=== PATIENT | female | born 1955 | race Caucasian/White ===

== ENCOUNTER 2024-06-30 11:15 | Day surgery (SDC) | payer OTHER ==
[2024-06-29 08:41] VITALS: BMI 30.9
[2024-06-30 12:02] VITALS: TEMP 97.2
[2024-06-30] MEDS: LACTATED RINGERS 1,000 ML IV SCH (12:09)
[2024-06-30] MEDS: IV FLUID CONTINUATION 1,000 ML IV ONE (12:09)
[2024-06-30] MEDS ORDERED: PROPOFOL 10 MG/ML 20 ML VIAL IV ONE (12:11)
[2024-06-30] MEDS ORDERED: LIDOCAINE 1% INJ 10MG/ML (20 ML MDV) ONE (12:11)
[2024-06-30 12:12] LABS: Glucose,Whole Blood 219 mg/dL (70-110)
--- NOTE | 2024-06-30 12:13 | P.GSHP ---
History of Present Illness H&P Date: 06/30/24 Chief Complaint: Screening with history of anal cancer 69-year-old female here for colonoscopy. Last colonoscopy 1.5 years ago. Patient has a personal history of anal cancer 5 years ago. Some itching recently. No bleeding. Past Medical History Past Medical History: Cancer, Diabetes Mellitus, GERD/Reflux, Hypertension, Thyroid Disorder Additional Past Medical History / Comment(s): HX ANAL CANCER-HAD CHEMO AND RADIATION-CLEAR FOR 5 YEARS History of Any Multi-Drug Resistant Organisms: None Reported Additional Past Surgical History / Comment(s): CERVICAL DISC REPLACED. COLONOSCOPY. BILAT CATARACTS REMOVED WITH LENS IMPLANTS Past Anesthesia/Blood Transfusion Reactions: No Reported Reaction Smoking Status: Former smoker - Past Family History Mother Family Medical History: Cancer Medications and Allergies Home Medications Medication Instructions Recorded Confirmed Type Levothyroxine Sodium [Synthroid] 75 mcg PO DAILY 06/29/24 06/29/24 History Losartan Potassium 100 mg PO DAILY 06/29/24 06/29/24 History Lurasidone [Latuda] 40 mg PO HS 06/29/24 06/29/24 History Omeprazole 20 mg PO DAILY 06/29/24 06/29/24 History Trospium Chloride [Sanctura] 40 mg PO HS 06/29/24 06/29/24 History Vortioxetine Hydrobromide 20 mg PO DAILY 06/29/24 06/29/24 History [Trintellix] lamoTRIgine [LaMICtal] 200 mg PO DAILY 06/29/24 06/29/24 History metFORMIN HCL 1,000 mg PO DAILY 06/29/24 06/29/24 History Allergies Allergy/AdvReac Type Severity Reaction Status Date / Time No Known Allergies Allergy Verified 06/30/24 11:45 Surgical - Exam Vital Signs Temp Pulse Resp BP Pulse Ox 97.2 F L 103 H 16 143/69 94 L 06/30/24 11:59 06/30/24 11:59 06/30/24 11:59 06/30/24 11:59 06/30/24 11:59 Physical exam: General: Well-developed, well-nourished HEENT: Normocephalic, sclerae nonicteric Abdomen: Nontender, nondistended Extremities: No edema Neuro: Alert and oriented Results - Labs Abnormal Lab Results - Last 24 Hours (Table) 06/30/24 Range/Units 12:08 POC Glucose (mg/dL) 219 H (70-110) mg/dL Assessment and Plan (1) Colon cancer screening Narrative/Plan: Will proceed with colonoscopy at this time. Current Visit: Yes Status: Acute Code(s): Z12.11 - ENCOUNTER FOR SCREENING FOR MALIGNANT NEOPLASM OF COLON SNOMED Code(s): 085332016
--- NOTE | 2024-06-30 12:31 | P.PCN ---
Date of Procedure: 06/30/24 Procedure(s) Performed: PREOPERATIVE DIAGNOSIS: Screening with history of anal cancer POSTOPERATIVE DIAGNOSIS: Mild inflammation at the anal rectal junction likely related to previous radiation treatment PROCEDURE: Colonoscopy with biopsy anus ANESTHESIA: MAC SURGEON: Polo Palafox M.D. SPECIMENS: Anus ENDOSCOPIC PROCEDURE: The patient was placed on the endoscopy table in the left decubitus position. The Olympus colonoscope was inserted into the anus and passed under direct visualization to the base of the cecum. The appendiceal orifice was visualized. From that point the scope was slowly withdrawn inspecting all surfaces carefully. There were no neoplastic inflammatory or polypoid lesions throughout the cecum, ascending, transverse, descending, sigmoid and rectum. There was no visible diverticulosis noted the patient's prep was fair to poor with some retained liquid and solid stool throughout. I would estimate 70% of the mucosal surfaces are visualized. At the junction with the anus there was noted to mild inflammatory changes particularly posteriorly. 2 biopsies were taken using the cold biopsy forceps. Next this was likely related to previous radiation changes. The patient was taken to the recovery room in stable condition per anesthesia guidelines. RECOMMENDATIONS: Await biopsy results. Will contact patient with timing of the next colonoscopy. If biopsy is negative recommend repeat colonoscopy 2 to 3 years.
[2024-06-30 12:36] VITALS: RESP 18
[2024-06-30 12:49] VITALS: BP 123/78; PULSE 92
[2024-06-30 13:02] LABS: Glucose,Whole Blood 198 mg/dL (70-110)
== END 2024-06-30 13:12 | disposition home or self-care (01) ==
LOC: ORWHC2ENDO 11:15
PROVIDERS: ATTEND Surgery
DX: C21.1 Malignant neoplasm of anal canal (principal); K21.9 Gastro-esophageal reflux disease without esophagitis; E11.9 Type 2 diabetes mellitus without complications; E03.9 Hypothyroidism, unspecified; M54.50 Low back pain, unspecified; I10 Essential (primary) hypertension; Z87.891 Personal history of nicotine dependence; Z79.890 Hormone replacement therapy; Z79.84 Long term (current) use of oral hypoglycemic drugs; Z79.899 Other long term (current) drug therapy
CPT/HCPCS: 88305; 45380; J2003; J2704

== ENCOUNTER → 2024-10-27 | Outpatient (CLI) | payer OTHER ==
--- NOTE | 2024-10-27 14:35 | BD ---
EXAMINATION TYPE: Axial Bone Density DATE OF EXAM: 10/27/2024 CLINICAL HISTORY: 69 years old Female. ICD-10 CODE: Z13.820 ENCOUNTER FOR SCREENING FOR OSTEOPOROSIS , Additional History: Height: 62 Weight: 196 FRAX RISK QUESTIONS: Secondary Osteoporosis: RISK FACTORS HISTORY OF: MEDICATIONS: Thyroid Medications: Which medication: Synthroid How Long: about 20 years EXAM MEASUREMENTS: Bone mineral densitometry was performed using the [employer] System. Bone mineral density as measured about the Lumbar spine is: ----- L1-L4(G/cm2): 1.168 T Score Values are as follows: ----- L1: -1.1 ----- L2: 0.1 ----- L3: -0.6 ----- L4: 0.8 ----- L1-L4: -0.1 Z Score Values are as follows: ----- L1: -0.2 ----- L2: 1.0 ----- L3: 0.3 ----- L4: 1.7 ----- L1-L4: 0.8 First dexa at [facility] Bone mineral density about the R hip (g/cm2): 0.932 Bone mineral density about the L hip (g/cm2): 0.967 T Score values are as follows: -----R Neck: -1.3 -----L Neck: -1.0 -----R Total: -0.6 -----L Total: -0.3 Z Score values are as follows: -----R Neck: -0.1 -----L Neck: 0.2 -----R Total: 0.4 -----L Total: 0.7 First dexa at [facility] FRAX%s: The graph provided illustrates a 9.2% chance for a major osteoporotic fx and a 1.3% chance fo r the hips probability for fx in 10 years time. IMPRESSION: Normal (Values between +1 and -1 indicate normal bone mass). Consider repeating this study in 5 year s or sooner if there is some new clinical indication. NOTE: T-SCORE=SD OF THE YOUNG ADULT MEAN. [facility], , 10/27/2024 2:33 PM
== END | disposition home or self-care (01) ==
LOC: RADBDWWP 12:58
PROVIDERS: ATTEND Family Medicine
DX: Z13.820 Encounter for screening for osteoporosis (principal); M85.89 Other specified disorders of bone density and structure, multiple sites
CPT/HCPCS: 77080

== ENCOUNTER → 2025-03-01 | Outpatient (CLI) | payer OTHER ==
--- NOTE | 2025-03-02 08:29 | MM ---
Reason for Exam: Screening (asymptomatic). Last mammogram was performed 26 year(s) and 4 month(s) ago. Patient History: Menarche at age 11. First Full-Term at age 21. Postmenopausal. Mother had breast cancer. Risk Values: Mercy 5 year model risk: 3.4%. NCI Lifetime model risk: 8.6%. Prior Study Comparison: No prior studies available for comparison. Tissue Density: There are scattered areas of fibroglandular density. Findings: Analyzed By CAD. There is no suspicious group of microcalcifications or new suspicious mass in either breast. Overall Assessment: Negative, BI-RAD 1 Management: Screening Mammogram of both breasts in 1 year. . Patient should continue monthly self-breast exams. A clinical breast exam by your physician is recommended on an annual basis. This exam should not preclude additional follow-up of suspicious palpable abnormalities. Note on Mercy scores and lifetime risk: 1. A Mercy score greater than 3% is considered moderate risk. If this is the case, consider specialist referral to assess eligibility for a risk reducing agent. 2. If overall lifetime risk for the development of breast cancer is 20% or higher, the patient may qualify for future screening with alternating mammogram and breast MRI. [facility], , 03/02/2025 8:27 AM. Electronically signed and approved by: Pavan Banerjee M.D. Radiologis
== END | disposition home or self-care (01) ==
LOC: RADMAMWWP 14:33
PROVIDERS: ATTEND Family Medicine
DX: Z12.31 Encounter for screening mammogram for malignant neoplasm of breast (principal); R92.323 Mammographic fibroglandular density, bilateral breasts; Z78.0 Asymptomatic menopausal state; Z80.3 Family history of malignant neoplasm of breast
CPT/HCPCS: 77063; 77067